=== PATIENT | male | born 1975 | race Caucasian/White ===

== ENCOUNTER → 2017-01-20 | Outpatient (CLI) | payer BC ==
--- NOTE | 2017-01-20 12:50 | ECHOS ---
DATE OF SERVICE: 01/20/2017 AGE: 41Y SEX: M HT: 69" WT: 202 lbs. Protocol Abhi: X Others: Abhi Stage: IV Dur. of Exercise: 13:00 *Heart Rate Blood Pressure *Rest: 73 Rest: 131/84 * *Max. Achieved: 169 Maximum BP: 178/93 85% PMHR: 150 100% PMHR: 176 *METS: 13.3 INDICATIONS: Chest pain. MEDICATIONS: Vitamine, losartan, loratadine. Patient was exercised for a total period of 13 minutes. A peak heart rate of 169 was achieved. Maximum blood pressure of 178/933 mmHg was noted. Resting EKG shows normal sinus rhythm with normal HI interval and QRS duration and normal ST-T waves. During exercise, J-point depression with upsloping ST segments are noted. Patient did not complain of any chest pain during the test. FINAL IMPRESSION: 1. This exercise test shows equivocal upsloping ST segment changes, which are not definitely diagnostic of ischemia. 2. Patient's exercise tolerance is excellent. 3. Patient did not complain of any chest pain during the test.
== END ==
LOC: RADNMMAIN 11:02
PROVIDERS: ATTEND Family Medicine
DX: R07.9 Chest pain, unspecified (principal)
CPT/HCPCS: 93017

== ENCOUNTER → 2017-03-17 | Outpatient (CLI) | payer BC ==
--- NOTE | 2017-03-17 17:25 | CT ---
EXAMINATION TYPE: CT angio chest DATE OF EXAM: 03/17/2017 5:17 PM COMPARISON: NONE HISTORY: Chest tightness on deep breaths, elevated d-dimer CT DLP: 399.8 mGycm. Automated Exposure Control for Dose Reduction was Utilized. CONTRAST: CTA scan of the thorax is performed with IV Contrast, patient injected with 100 mL of Omnipaque 350, pulmonary embolism protocol. MIP Images are created on CT scanner and reviewed. FINDINGS: LUNGS: There is some respiratory motion artifact making evaluation slightly suboptimal. Dependent ate lectasis in bilateral lower lobes is present. No suspicious groundglass opacity or consolidation is s een. No pleural effusion or pneumothorax is noted bilaterally. Tracheobronchial tree is patent. MEDIASTINUM: There is slightly suboptimal bolus with thecal contrast seen in right and left heart sys tems but there is no suspicious filling defect to suggest pulmonary embolism. There are no greater t allison 1 cm hilar or mediastinal lymph nodes. There are subcentimeter low dense bilateral hilar nodular ity presumed benign. No cardiomegaly or pericardial effusion is seen. OTHER: There is multilevel spurring in the thoracic spine. Straightening of spine is noted in sagitta l images Vacuum disc phenomenon lower thoracic levels is present. IMPRESSION: Suboptimal bolus without CT evidence for pulmonary embolism. No suspicious acute pulmonar y process is seen.
== END | disposition home or self-care (01) ==
LOC: RADCTMAIN 16:50
PROVIDERS: ATTEND Family Medicine
DX: R79.1 Abnormal coagulation profile (principal)
CPT/HCPCS: 71275; Q9967